=== PATIENT | female | born 1980 | race Caucasian/White ===

== ENCOUNTER 2019-11-17 16:57 | Outpatient (CLI) | payer BC, SELFPAY ==
--- NOTE | ~2019-11-17 | XR_ITS ---
EXAMINATION:XR_[id number]_CR DATE: 11/17/2019 17:13 INDICATION: Neck pain TECHNIQUE: AP, lateral, and odontoid views of the cervical spine are provided. COMPARISON: None FINDINGS: There is reversal of normal cervical lordosis. The odontoid is intact. No fracture is ident ified. Vertebral body heights and disk spaces are normal. Prevertebral soft tissues are normal. IMPRESSION: 1. Reversal of the normal cervical lordosis without acute abnormality of the cervical spine. Reviewed, dictated and finalized at location F. IMPRESSION: 1. Reversal of the normal cervical lordosis without acute abnormality of the ce rvical spine.
== END 2019-11-17 16:58 | disposition home or self-care (01) ==
LOC: CHSIMG 16:59
PROVIDERS: PCP Internal Medicine; Visit Provider Internal Medicine
DX: M54.2 Cervicalgia (principal)
CPT/HCPCS: 72040

== ENCOUNTER 2019-11-19 15:43 | Outpatient (RCR) | payer BC, SELFPAY ==
--- NOTE | 2019-11-19 16:53 | PTOPEVAL ---
Thank you for referring Noemi Winters to [facility]. Please review, sign, date and return this plan of care XAVI. I agree with and certify that the following plan of care is medically necessary. Referring Physician Date Admitting Provider: Attending Provider: Kimberly Rodriguez MD Referring Provider: *PT Outpatient Evaluation Start: 11/19/19 16:05 Freq: Status: Active Protocol: Document 11/19/19 16:05 JTF (Rec: 11/19/19 16:37 [facility] [id number]) Therapy Assessment Status Assessment Status Assessment Status Evaluation Evaluation Information Problem Diagnosis chronic neck pain Onset 11/17/19 Additional Evaluation Detail ndi = 26% Subjective Information patient reports she has been Query Text:As Reported By Patient/ having pain in the neck for Family about 2-3 years on her L side. she reports she does not have pain into the arm. she reports the pain is on the L side of the neck to the ear region. she reports she has tried chiropractic work without help. she reports she recently had x-rays of the spine. she reports she has increased pain with sitting at a desk throughout her work day. she reports she works in [employer] access [employer]. she reports she also has increased pain with driving (hour back and forth to work). patient reports she does have headaches, but reports she has had them prior to her neck pain beginning. Diagnostic Tests X-Rays For This Problem Yes: reversal or normal cervical lordosis Prior Level of Function Comments Additional Prior Level of Function she reports she has not been Comments stopped from completing any activities or being involved in any leisure time. however, she reports increased pain with activities and annoyance of pain in the neck. she reports she has been using icyhot to the spine. Pain Assessment Timing of Pain Assessment Timing of Pain Assessment Assessment Pain Scale Pain Scale Used Numeric (1 - 10) Self Report Pain Assessm
== END 2019-12-22 17:38 | disposition home or self-care (01) ==
LOC: CHSPT 15:43
PROVIDERS: PCP Internal Medicine; Visit Provider Internal Medicine
DX: M54.2 Cervicalgia (principal)
CPT/HCPCS: 97014; 97110; 97140; 97161; G0283

== ENCOUNTER 2020-02-06 01:11 | Outpatient (CLI) | payer BC, SELFPAY ==
[2020-02-06 18:13] LABS: SARS-CoV-2 RNA PCR Negative
== END 2020-02-06 01:12 | disposition home or self-care (01) ==
LOC: ANHCOVIDDT 01:12
PROVIDERS: PCP Internal Medicine; Visit Provider Surgery
DX: Z01.812 Encounter for preprocedural laboratory examination (principal); Z20.828 Contact with and (suspected) exposure to other viral communicable diseases
CPT/HCPCS: 87635; C9803; U0003

== ENCOUNTER 2020-02-09 00:38 | Day surgery (SDC) | payer BC, SELFPAY ==
[2020-01-29 14:28] VITALS: BMI 24.1
[2020-02-09 06:55] VITALS: BP 104/76; PULSE 98; RESP 18; TEMP 36.6; O2SAT 96
[2020-02-09] MEDS: LACTATED RINGERS 1,000 ML 150 ML IV CONT (07:24)
--- NOTE | 2020-02-09 08:25 | WPDANESEPPF ---
Anes - Initial Pre Proc Eval Procedure: Operation Date: 02/09/20 08:30 Proposed Procedures p Screening Colonoscopy - Pedro Goodwin DO Date/Time: 02/09/20 08:25 Surgeon: Pedro Goodwin DO Pre Op Diagnosis: Family Hx Colon Ca Patient Data Age: 39 Gender: F Height: 1.7 m Weight: 67.1 kg Last Vital Signs Temp 36.6 C 02/09/20 06:55 Pulse 98 02/09/20 06:55 Resp 18 02/09/20 06:55 BP 104/76 02/09/20 06:55 Pulse Ox 96 02/09/20 06:55 Allergies Allergy/AdvReac Type Severity Reaction Status Date / Time No Known Allergies Allergy Verified 02/09/20 07:25 Home Medications Medication Instructions Recorded Confirmed Type acyclovir 400 mg PO DAILY 01/29/20 01/29/20 History xxrqymhctfgx-Kz-kizq-minerals 1 tablet PO DAILY 01/29/20 01/29/20 History [Multiple Vitamin, Womens] etonogestrel [Nexplanon] 1 implant SUBDERMAL ONCE 02/09/20 02/09/20 History Patient hx anesthesia problems: none Family hx anesthesia problems: none PMFSH Past Medical History Medical History (Updated 02/09/20 @ 08:26 by Bill Evans MD) Palpitations Tobacco abuse Social History Social History Years smoked: 20 Smoking status: Current some day smoker Tobacco type: cigarettes Second hand tobacco smoke exposure: Yes Alcohol intake: current Drinks per week: 8 Alcohol use details: BEERS Substance use: never Substance use type: does not use Living arrangements: alone Spiritual care concerns: No Anes - Eval Final PreProcedure Day of Procedure 02/09/20 08:25 Patient weight: normal Heart: regular rate and rhythm Lungs: clear to auscultation and normal air movement Airway: Mallampati scale class II Neurological: alert and oriented Last oral intake: >/= 8 hours ASA classification: II Emergent: no Anesthetic plan: proceed Anesthesia type and monitoring: general GIVS Informed Consent: The patient's anesthetic plan and its attendant risks and benefits were discussed with the patient/family/POA. Questions were solicited and answers provided to the satisfaction of the patient/family/POA.
--- NOTE | 2020-02-09 08:30 | PM.IMHP ---
H&P: HPI History of Present Illness Date/Time: 02/09/20 08:30 Chief complaint: Family Hx Colon Ca Narrative: Noemi Winters is a 39 year old female who presents for colonoscopy. She has fam hx colon cancer. She denies hematochezia or melena. No change in bowel habits. Review of Systems Review of Systems: All systems reviewed & are unremarkable except as noted in HPI and below Constitutional: Constitutional: Denies chills, Denies fever(s), Denies headache(s) and Denies weight loss Eyes: Eyes: Denies change in vision ENT: Denies dizziness, Denies headache(s), Denies neck mass and Denies throat swelling Cardiovascular: Cardiovascular: Denies chest pain, Denies lightheadedness and Denies dyspnea Respiratory: Respiratory: Denies cough, Denies dyspnea and Denies wheezing Gastrointestinal: Gastrointestinal: Denies abdominal pain, Denies change in bowel habits, Denies nausea and Denies vomiting Genitourinary: Genitourinary: Denies hematuria and Denies dysuria Musculoskeletal: Musculoskeletal: Reports as per HPI Integumentary/Breasts: Skin/Breast: Reports as per HPI Neurologic: Denies dizziness and Denies headache(s) Allergic/Immunologic: Allergic/Immunologic: Denies throat swelling and Denies wheezing PMFSH Past Medical History Medical History Palpitations Tobacco abuse Social History Social History Years smoked: 20 Smoking status: Current some day smoker Tobacco type: cigarettes Second hand tobacco smoke exposure: Yes Alcohol intake: current Drinks per week: 8 Alcohol use details: BEERS Substance use: never Substance use type: does not use Living arrangements: alone Spiritual care concerns: No Meds Home Medications and Allergies Home Medications Medication Instructions Recorded Confirmed Type acyclovir 400 mg PO DAILY 01/29/20 01/29/20 History bsiiceygmits-Jb-pzzp-minerals 1 tablet PO DAILY 01/29/20 01/29/20 History [Multiple Vitamin, Womens] etonogestrel [Nexplanon] 1 implant SUBDERMAL ONCE 02/09/20 02/09/20 History Allergies Allergy/AdvReac Type Severity Reaction Status Date / Time No Known Allergies Allergy Verified 09/08/20 07:25 Vital Signs Vital Signs - 24 hr 02/09/20 06:55 Temperature 36.6 C Pulse Rate 98 Respiratory Rate 18 Blood Pressure 104/76 Pulse Oximetry 96 Exam Const: General: no acute distress and alert Orientation/consciousness: patient oriented x3 HENMT: Head: normocephalic and atraumatic Ears: hearing grossly normal bilaterally General nose exam: Normal nares present Mouth: Yes Normal oral and palatal mucosa present Eyes: Periorbital: periorbital findings normal Sclera: sclerae normal EOM: EOMs intact bilaterally Neck: Neck: normal visual inspection, no lymphadenopathy and trachea midline Chest: Chest palpation & inspection: normal inspection of the chest Resp: Effort & Inspection: normal respiratory effort Auscultation: clear to auscultation bilaterally Cardio: Jugular venous distension: no JVD Rate: regular rate Rhythm: regular rhythm Heart sounds: S1 normal heart sound present and S2 normal heart sound present Peripheral pulses: Peripheral pulses 2+ throughout GI: Inspection: normal to inspection GI Palp: Yes Soft to palpation, No Tenderness to palpation present (GI), No Guarding due to palpation present (GI) and No Rebound tenderness present Percussion: Yes normal to percussion Auscultation: normal bowel sounds : General: Yes no CVA tenderness Back/Spine/Pelvis: Back: no CVA tenderness Neuro: General: patient oriented x3, no focal motor deficits and CN's II-XI intact bilaterally Cognition (Neuro): normal cognition Speech: normal speech Motor exam (neuro): 5/5 motor strength present throughout Extrem: General: capillary refill normal and no clubbing, cyanosis or edema Assessment and P
[2020-02-09 08:46] VITALS: BP 83/48; PULSE 83; RESP 16; O2SAT 98
[2020-02-09 08:56] VITALS: BP 82/46; PULSE 75; RESP 16; O2SAT 99
[2020-02-09 09:06] VITALS: BP 93/56; PULSE 78; RESP 16; O2SAT 100
== END 2020-02-09 09:27 | disposition home or self-care (01) ==
PROVIDERS: PCP Internal Medicine; Visit Provider Surgery
PROC: 0DJD8ZZ Inspection of Lower Intestinal Tract, Via Natural or Artificial Opening Endoscopic (ICD-10-PCS; CPT 45378; principal; 2020-02-09 08:30)
DX: Z12.11 Encounter for screening for malignant neoplasm of colon (principal); Z80.0 Family history of malignant neoplasm of digestive organs; F17.210 Nicotine dependence, cigarettes, uncomplicated
CPT/HCPCS: 45378; J2704; J7120

== ENCOUNTER 2020-07-28 15:00 | Outpatient (CLI) | payer BC, SELFPAY ==
--- NOTE | ~2020-07-28 | MM_ITS ---
EXAMINATION: MM screening [place]no BI w mely HISTORY: Screening mammogram TECHNIQUE: Craniocaudal and mediolateral oblique 3-D tomosynthesis images were obtained and synthetic 2-D images were generated. CAD analysis was submitted and interpreted. COMPARISON: None, baseline BREAST PARENCHYMAL COMPOSITION: There are scattered areas of fibroglandular density. FINDINGS: RIGHT BREAST: An asymmetry is present in the posterior third of the upper breast on the mediolateral oblique view. LEFT BREAST: There is no evidence of suspicious mass, calcification, or architectural distortion to s uggest malignancy. IMPRESSION: 1. Right breast asymmetry on the mediolateral oblique view. 2. Additional mammographic views and possible breast ultrasound are recommended to evaluate for malig keiry and establish a baseline given that this is the first mammographic examination. BI-RADS Category 0: Incomplete: Needs additional imaging evaluation. Reviewed, dictated and finalized at location A. SALES TECHNICAL ENGINEER IMPRESSION: 1. Right breast asymmetry on the mediolateral oblique view. 2. Additional mammographic views and possible breast ultrasound are recommended to evaluate for malignancy and establish a baseline given that this is the fir st mammographic examination. BI-RADS Category 0: Incomplete: Needs additional imaging evaluation.
== END 2020-07-28 15:01 | disposition home or self-care (01) ==
LOC: CHSIMG 15:01
PROVIDERS: PCP Internal Medicine; Visit Provider Obstetrics & Gynecology
DX: Z12.31 Encounter for screening mammogram for malignant neoplasm of breast (principal)
CPT/HCPCS: 77063; 77067

== ENCOUNTER 2020-07-30 06:47 | Outpatient (CLI) | payer BC, SELFPAY ==
--- NOTE | ~2020-07-30 | MR_ITS ---
EXAMINATION: MR cervical spine wo con DATE: 07/30/2020 07:28 INDICATION: Left-sided neck pain. TECHNIQUE: Magnetic resonance imaging (MRI) of the cervical spine was performed without intravenous c ontrast. Sequences included sagittal T2-weighted FSE, sagittal T2-weighted FS FSE, sagittal T1-weight ed FSE, axial MERGE, and axial T2-weighted FSE. COMPARISON: Cervical spine radiograph 11/17/2019 FINDINGS: There is kyphosis of cervical spine. Vertebral body heights and intervertebral disc heights are normal. The spinal cord signal intensity is normal. The following disc levels are specifically d iscussed: C2-C3: The disc does not extend beyond the endplate margin. There is no uncovertebral joint osteoarth ritis. There is severe bilateral facet joint osteoarthritis. There is mild left neural foraminal sten osis. There is no central canal stenosis. C3-C4: The disc does not extend beyond the endplate margin. There is no uncovertebral joint osteoarth ritis. There is moderate right and mild left facet joint osteoarthritis. There is no neural foraminal stenosis. There is no central canal stenosis. C4-C5: There is a central protrusion. There is no uncovertebral joint osteoarthritis. There is modera te right facet joint osteoarthritis. There is no neural foraminal stenosis. There is mild central can al stenosis. C5-C6: The disc does not extend beyond the endplate margin. There is no uncovertebral joint osteoarth ritis. There is no facet joint osteoarthritis. There is no neural foraminal stenosis. There is no sara tral canal stenosis. C6-C7: The disc does not extend beyond the endplate margin. There is no uncovertebral joint osteoarth ritis. There is no facet joint osteoarthritis. There is no neural foraminal stenosis. There is no sara tral canal stenosis. C7-T1: The disc does not extend beyond the endplate margin. There is no uncovertebral joint osteoarth ritis. There is mild bilateral facet joint osteoarthritis. There is no neural foraminal stenosis. The re is no central canal stenosis. IMPRESSION: 1. Mild cervical spondylosis. Reviewed, dictated and finalized at location A. T SEWER
== END 2020-07-30 06:48 | disposition home or self-care (01) ==
LOC: CHSIMG 06:48
PROVIDERS: PCP Internal Medicine; Visit Provider Internal Medicine
DX: M54.2 Cervicalgia (principal)
CPT/HCPCS: 72141

== ENCOUNTER 2020-08-11 08:48 | Outpatient (CLI) | payer BC, SELFPAY ==
--- NOTE | ~2020-08-11 | MMUS_ITS ---
EXAMINATION: MM diagnostic moreno RT w mely, US breast RT limited HISTORY: Asymmetry reported in the posterior third of the upper right breast on July 28, 2020 scr eening mammogram TECHNIQUE: Additional 3-D tomosynthesis images of the right breast were performed and synthetic 2-D i mages were generated. CAD analysis was submitted and interpreted. High resolution upper inner and upp er outer right breast ultrasound was performed. COMPARISON: July 28, 2020 bilateral digital screening mammogram FINDINGS: MAMMOGRAPHIC FINDINGS: No reproducible mass or architectural distortion is evident. There is likely fibroglandular asymmetry . Ultrasound examination of the upper inner and upper outer right breast was performed for confirmati on. ULTRASOUND: No suspicious mass or shadowing is detected in the upper inner or upper outer right breast. IMPRESSION: 1. No mammographic evidence of malignancy 2. Routine mammographic screening BI-RADS Category 2: Benign finding(s); benign fibroglandular asymmetry. Reviewed, dictated and finalized at location A. DYER OPERATOR IMPRESSION: 1. No mammographic evidence of malignancy 2. Routine mammographic screening BI-RADS Category 2: Benign finding(s); benign fibroglandular asymmetry.
== END 2020-08-11 08:49 | disposition home or self-care (01) ==
LOC: CHSIMG 08:49
PROVIDERS: PCP Internal Medicine; Visit Provider Student in an Organized Health Care Education/Training Program
DX: R92.8 Other abnormal and inconclusive findings on diagnostic imaging of breast (principal)
CPT/HCPCS: 76642; 77061; 77065; G0279

== ENCOUNTER 2021-05-16 11:21 | Outpatient (CLI) | payer BC, SELFPAY ==
[2021-05-16 12:50] LABS: Influenza A QL RT-PCR Negative (Negative); Influenza B QL RT-PCR Negative (Negative); SARS-CoV-2 RNA PCR Negative (Negative)
== END 2021-05-16 11:22 | disposition home or self-care (01) ==
LOC: CHSLAB 11:23
PROVIDERS: PCP Internal Medicine; Visit Provider Internal Medicine
DX: J06.9 Acute upper respiratory infection, unspecified (principal)
CPT/HCPCS: 87502; C9803; U0003; U0005

== ENCOUNTER 2021-09-04 13:50 | Outpatient (CLI) | payer BC, SELFPAY ==
--- NOTE | ~2021-09-04 | MM_ITS ---
EXAMINATION: MM screening moreno BI w mely HISTORY: Screening TECHNIQUE: Craniocaudal and mediolateral oblique 3-D tomosynthesis images were obtained and synthetic 2-D images were generated. CAD analysis was submitted and interpreted. COMPARISON: 07/28/2020 BREAST PARENCHYMAL COMPOSITION: Breast composed of scattered areas of fibroglandular density FINDINGS: There is no evidence of suspicious mass, calcification, or architectural distortion to sugg est malignancy in either breast. There has been no suspicious interval change. IMPRESSION: 1. No mammographic evidence of malignancy. 2. Recommend routine screening mammography in one year. BI-RADS Category 1: Negative Reviewed, dictated and finalized at location A.
== END 2021-09-04 13:51 | disposition home or self-care (01) ==
PROVIDERS: PCP Internal Medicine; Visit Provider Obstetrics & Gynecology
DX: Z12.31 Encounter for screening mammogram for malignant neoplasm of breast (principal)
CPT/HCPCS: 77063; 77067

== ENCOUNTER 2021-12-12 16:07 | Outpatient (CLI) | payer BC, SELFPAY ==
[2021-12-12 16:21] LABS: Add Urine Microscopic? NO; Appearance Urine Clear (Clear); Bilirubin Urine Negative (Negative); Blood Urine Negative (Negative); Color Urine Light Yellow (Yellow); Glucose Urine UA Negative (Negative); Ketones Urine Negative (Negative); Leukocyte Esterase Ur Negative LEU/UL (Negative); Nitrate Urine Negative (Negative); Protein Urine Negative (Negative); Specific Grav Ur <= 1.005 (1.010-1.020); Urobilinogen Urine 0.2 mg/dL (0.2-1.0); pH Urine 5.5 (5.0-8.0)
[2021-12-12 16:29] LABS: Basophils Absolute Auto 0.03 K/mm3 (0.00-0.10); Basophils Percent Auto 0.6 % (0.0-1.0); Eosinophils Absolute Auto 0.05 K/mm3 (0.02-0.50); Hematocrit 35.7 % (35.0-49.0); Immature Granulocyte Absolute 0.01 K/mm3 (0.00-0.00); Immature Granulocyte Percent A 0.2 % (0.0-0.0); Lymphocytes Absolute Auto 1.74 K/mm3 (1.10-4.50); Lymphocytes Percent Auto 34.9 % (18.0-42.0); Mean Corpuscular HGB Conc 33.6 g/dL (32.0-36.0); Mean Corpuscular Hemoglobin 32.4 pg (27.0-31.0); Mean Corpuscular Volume 96.5 fL (78.0-102.0); Mean Platelet Volume 9.8 fl (9.2-11.8); Neutrophils Absolute Auto 2.7 K/mm3 (1.7-7.2); Neutrophils Percent Auto 53.3 % (50.0-70.0); Platelet Count Result 292 K/mm3 (150-420); Red Cell Distribution Width 12.1 % (11.6-14.4)
[2021-12-12 16:38] LABS: Rheumatoid Factor Screen Negative (Negative)
[2021-12-12 16:39] LABS: Hemoglobin A1C 5.5 % (<5.7)
[2021-12-12 16:48] LABS: Alanine Aminotransferase 25 U/L (14-59); Albumin Level 4.3 g/dL (3.4-5.0); Alkaline Phosphatase 64 U/L (46-116); Anion Gap 8 mmol/L (8-16); Aspartate Amino Transferase 13 U/L (15-37); Bilirubin,Total 0.3 mg/dL (0.00-1.00); Blood Urea Nitrogen 13 mg/dL (7-18); Calcium 9.1 mg/dL (8.5-10.1); Carbon Dioxide 27 mmol/L (21-32); Chloride 105 mmol/L (98-108); Estimated Glomerular Filt Rate > 60; Free T3 2.48 pg/mL (2.18-3.98); Glucose 101 mg/dL (70-99); Osmolality Calculated 290 mOsm/kg (285-295); Potassium 3.7 mmol/L (3.5-5.1); Sodium 140 mmol/L (136-145); Thyroid Stimulating Hormone 1.71 uIU/mL (0.36-3.74); Total Protein 7.7 g/dL (6.4-8.2)
[2021-12-12 16:53] LABS: CRP < 0.2 mg/dL (0.0-0.9)
[2021-12-12 17:23] LABS: Erythrocyte Sedimentation Rate 15 mm/hr (0-15)
[2021-12-14 21:57] LABS: Anti Cyclic Citrullinated Pept <16 Units (<20)
== END 2021-12-12 16:08 | disposition home or self-care (01) ==
LOC: CHSLAB 16:07
PROVIDERS: PCP Internal Medicine; Visit Provider Internal Medicine
DX: N39.41 Urge incontinence (principal); G43.709 Chronic migraine without aura, not intractable, without status migrainosus; E55.9 Vitamin D deficiency, unspecified; R20.3 Hyperesthesia; M54.2 Cervicalgia
CPT/HCPCS: 36415; 80053; 81003; 83036; 84439; 84443; 84481; 85025; 85652; 86038; 86140; 86200; 86430

== ENCOUNTER 2022-01-15 10:23 | Outpatient (CLI) | payer BC, SELFPAY ==
--- NOTE | ~2022-01-15 | XR_ITS ---
XR foot RT min 3V 01/15/2022 10:48 Indication: Right foot pain Procedure: 3 views right foot Comparison: 01/30/2017 Findings: There is mild osteoarthritis of the first MTP joint. Normal mineralization. Lisfranc joint intact. No fracture or traumatic malalignment. No focal soft tissue abnormality. No foreign bodies. Impression: 1: Mild osteoarthritis of the first MTP joint. Reviewed, dictated and finalized at location B. Impression: 1: Mild osteoarthritis of the first MTP joint.
== END 2022-01-15 10:24 | disposition home or self-care (01) ==
LOC: CHSIMG 10:25
PROVIDERS: PCP Internal Medicine; Visit Provider Orthopaedic Surgery
DX: M79.671 Pain in right foot (principal)
CPT/HCPCS: 73630

== ENCOUNTER 2022-07-12 11:00 | Outpatient (RCR) | payer BC, SELFPAY ==
--- NOTE | 2022-04-17 10:06 | PTOPEVAL1 ---
Assessment and note entered by Diana Anderson DPT Evaluation Information Assessment Status Evaluation Reported Pain Level Pain Score 0: Self Report Additional Pain Score Comments Pt reports urinary frequency and has had pelvic pain with exams. Urinating at least 12 times a day and 3-4 times at night. Denies urinary incontinence but reports urgency, can hold 15-20 minutes before running to the bathroom to void. Denies pain with urination. BM on average 2-3 times a week, sometimes mild pain from constipation. History of pain with pap smears for at least 10-15 years. 7/10 highest and 0/10 lowest . Pain with sexual activity in the past, frequently. Also reports back pain that started late February, relates it to after her most recent pelvic exam. Highest back pain 5-6/10 and lowest 2/10. Back pain increases with prolonged sitting. Relief with laying down. Pt reports she has never been . Previous abnormal pap smear 10+ years ago, was normal with further testing. Voices frustration with frequent urination and especially at night. Assessment PT Clinical Summary The patient is presenting to skilled therapy with a progressing history of pelvic pain and urinary frequency. She presents with decreased core and LE strength and significantly increased pelvic floor muscle tone and pain upon palpation. These impairments are contributing to her pain with pelvic exam etc. as well as her urinary frequency. She will highly benefit from therapy in order to safely decrease pain and dysfunction. Plan of Care Interventions Electrical Stimulation,Hot Pack/Cold Pack,Manual Therapy,Neuro Re-education,Patient/Caregiver Education,Therapeutic Activities,Therapeutic Exercise,Self-Care/Home Management Treatment Frequency and 1 time a week for 6 weeks Duration These treatments will address the objective and functional deficits as defined above. The patient will be advanced safely and appropriately in order for the patient to progress towards his/her prior level of function. Additional exercises will be introduced and as well as a comprehensive home exercise program upon discharge, if needed, ?to ensure carryover of functional gains achieved in the clinic. This treatment plan has been reviewed and agreement upon by the patient.
--- NOTE | 2022-05-29 09:39 | PTOPPROG ---
Assessment and note entered by Diana Anderson DPT Evaluation Information Assessment Status Progress Subjective Information Pt reports feeling good with therapy. Pt reports she sees improvements but it depends on the day, still has nights where she is voiding every 2 hours but has other nights where she can wait 4-5 hours. Reports the pain has been better on exam recently as well. Will be going for her pap next week and is curious to see how that feels. No internal assessment this visit- will reassess pain at next visit. Assessment PT Clinical Summary The patient has made some progress in therapy and reports intermittent improvements in ability to sleep without waking every 2 hours to void, and reports decreased pelvic pain during therapy sessions. Will re-assess pelvic floor at next visit. Due to progress but continued pain and frequency of urination at night, plan to continue therapy to further reduce pain and dysfunction. Plan of Care Interventions Electrical Stimulation,Hot Pack/Cold Pack,Manual Therapy,Neuro Re-education,Patient/Caregiver Education,Therapeutic Activities,Therapeutic Exercise,Self-Care/Home Management PT Services Indicated Yes Treatment Frequency and 1 visit every other week for 6 weeks Duration These treatments will address the objective and functional deficits as defined above. The patient will be advanced safely and appropriately in order for the patient to progress towards his/her prior level of function. Additional exercises will be introduced and as well as a comprehensive home exercise program upon discharge, if needed, ?to ensure carryover of functional gains achieved in the clinic. This treatment plan has been reviewed and agreement upon by the patient.
--- NOTE | 2022-07-12 11:23 | PTOPDC ---
Assessment and note entered by Diana Anderson DPT Evaluation Information Assessment Status Discharge Subjective Information Pt reports feeling about the same. Has 1-2 nights a week where she can sleep 4-5 hours. Other nights will sleep 2-3 hours before waking, not always to void but will get up to void anyway. No pain in last week, just feels a significant urge. Reported Pain Level Pain Score 0: Self Report Assessment PT Clinical Summary The patient has made some progress in therapy. She is able to tolerate further pelvic floor exam with less pain and demonstrates improved hip strength. She continues to wake frequently at night, some of the time to void but usually voids regardless. Patient would like to discharge therapy this visit and continue HEP independently. She has been educated to follow up with MD and/or PT as needed. Plan of Care PT Services Indicated No
== END 2022-07-12 15:29 | disposition home or self-care (01) ==
LOC: ANHGOSHPT 11:00
PROVIDERS: PCP Internal Medicine
DX: N39.46 Mixed incontinence (principal); N94.10 Unspecified dyspareunia; M79.18 Myalgia, other site; K59.00 Constipation, unspecified; R35.0 Frequency of micturition
CPT/HCPCS: 97110; 97112; 97140; 97162

== ENCOUNTER 2022-09-06 14:28 | Outpatient (CLI) | payer BC, SELFPAY ==
--- NOTE | ~2022-09-06 | MM_ITS ---
EXAMINATION: MM screening [facility] BI w mely HISTORY: Screening TECHNIQUE: Craniocaudal and mediolateral oblique 3-D tomosynthesis images were obtained and synthetic 2-D images were generated. CAD analysis was submitted and interpreted. COMPARISON: Comparison to multiple prior studies sequentially, with oldest reviewed study dated 07/28. BREAST PARENCHYMAL COMPOSITION: There are scattered areas of fibroglandular density. FINDINGS: There is no evidence of suspicious mass, calcification, or architectural distortion to sugg est malignancy in either breast. There has been no suspicious interval change. IMPRESSION: 1. No mammographic evidence of malignancy. 2. Recommend routine screening mammography in one year. BI-RADS Category 1: Negative Reviewed, dictated and finalized at location A.
== END 2022-09-06 14:29 | disposition home or self-care (01) ==
LOC: CHSIMG 14:29
PROVIDERS: PCP Obstetrics & Gynecology; Visit Provider Obstetrics & Gynecology
DX: Z12.31 Encounter for screening mammogram for malignant neoplasm of breast (principal)
CPT/HCPCS: 77063; 77067

== ENCOUNTER 2023-02-14 13:56 | Outpatient (CLI) | payer BC, SELFPAY ==
--- NOTE | ~2023-02-14 | XR_ITS ---
EXAMINATION: [id number] INDICATION: Right foot pain TECHNIQUE: Three views of the right foot are obtained. COMPARISON: None available FINDINGS: Bone alignment is normal. There is no fracture. There is mild osteoarthritis of multiple in terphalangeal joints. The soft tissues are unremarkable. IMPRESSION: 1. No acute osseous abnormality. Reviewed, dictated and finalized at location F.
== END 2023-02-14 13:57 | disposition home or self-care (01) ==
LOC: CHSIMG 13:59
PROVIDERS: PCP Internal Medicine; Visit Provider Student in an Organized Health Care Education/Training Program
DX: M84.374A Stress fracture, right foot, initial encounter for fracture (principal)
CPT/HCPCS: 73630

== ENCOUNTER 2023-05-31 09:12 | Outpatient (CLI) | payer BC, SELFPAY ==
[2023-05-31 09:27] LABS: Appearance Urine Clear (Clear); Basophils Absolute Auto 0.04 K/mm3 (0.00-0.10); Basophils Percent Auto 0.8 % (0.0-1.0); Bilirubin Urine Negative (Negative); Blood Urine Trace-Intact (Negative); Color Urine Yellow (Yellow); Eosinophils Absolute Auto 0.12 K/mm3 (0.02-0.50); Eosinophils Percent Auto 2.3 % (1.0-6.0); Glucose Urine UA Negative (Negative); Hematocrit 37.7 % (35.0-49.0); Hemoglobin 12.8 g/dL (12.0-15.0); Immature Granulocyte Absolute 0.02 K/mm3 (0.00-0.00); Immature Granulocyte Percent A 0.4 % (0.0-0.0); Ketones Urine Negative (Negative); Leukocyte Esterase Ur Negative LEU/UL (Negative); Lymphocytes Absolute Auto 1.75 K/mm3 (1.10-4.50); Lymphocytes Percent Auto 32.8 % (18.0-42.0); Mean Corpuscular Hemoglobin 32.4 pg (27.0-31.0); Mean Corpuscular Volume 95.4 fL (78.0-102.0); Mean Platelet Volume 9.3 fl (9.2-11.8); Monocytes Absolute Auto 0.43 K/mm3 (0.10-0.90); Monocytes Percent Auto 8.1 % (2.0-11.0); Neutrophils Percent Auto 55.6 % (50.0-70.0); Nitrate Urine Negative (Negative); Platelet Count Result 323 K/mm3 (150-420); Protein Urine Negative (Negative); Red Blood Count 3.95 M/mm3 (4.20-5.40); Red Cell Distribution Width 11.8 % (11.6-14.4); Specific Grav Ur 1.015 (1.010-1.020); Urobilinogen Urine 0.2 mg/dL (0.2-1.0); White Blood Count 5.3 K/mm3 (4.8-10.8)
[2023-05-31 09:32] LABS: Add Urine Microscopic? YES; Bacteria Urine Rare /hpf; RBC Urine 0-2 /hpf (0-2); Squamous Epithelial Cell Urine Occasional /hpf (Few); WBC Urine None seen /hpf (0-3)
[2023-05-31 09:43] LABS: Hemoglobin A1C 5.4 % (<5.7)
[2023-05-31 10:40] LABS: Alanine Aminotransferase 25 U/L (14-59); Albumin Level 4.5 g/dL (3.4-5.0); Alkaline Phosphatase 59 U/L (46-116); Anion Gap 8 mmol/L (8-16); Aspartate Amino Transferase 13 U/L (15-37); Bilirubin,Total 0.5 mg/dL (0.00-1.00); Blood Urea Nitrogen 15 mg/dL (7-18); Carbon Dioxide 31 mmol/L (21-32); Chloride 100 mmol/L (98-108); Cholesterol 203 mg/dL (0-200); Estimated Glomerular Filt Rate > 60; Free T3 3.17 pg/mL (2.18-3.98); Free T4 Free Thyroxine 0.85 ng/dL (0.76-1.46); Glucose 120 mg/dL (70-99); HDL Direct 49 mg/dL (40-60); LDL Cholesterol Calculated 137 mg/dL (<130); Osmolality Calculated 289 mOsm/kg (285-295); Potassium 3.9 mmol/L (3.5-5.1); Sodium 139 mmol/L (136-145); Thyroid Stimulating Hormone 1.97 uIU/mL (0.36-3.74); Total Protein 7.6 g/dL (6.4-8.2); Triglycerides 84 mg/dL (0-150)
[2023-06-03 06:41] LABS: Vitamin D 25 Hydroxy 37 ng/mL (30-100)
== END 2023-05-31 09:13 | disposition home or self-care (01) ==
LOC: CHSLAB 09:14
PROVIDERS: PCP Internal Medicine; Visit Provider Internal Medicine
DX: N39.0 Urinary tract infection, site not specified (principal); E55.9 Vitamin D deficiency, unspecified; R53.82 Chronic fatigue, unspecified; R73.01 Impaired fasting glucose
CPT/HCPCS: 36415; 80053; 80061; 81001; 82306; 83036; 84439; 84443; 84481; 85025

== ENCOUNTER 2023-06-12 16:44 | Outpatient (CLI) | payer OTHER, SELFPAY ==
[2023-06-12 17:57] LABS: Vitamin B12 891 pg/mL (193-986)
[2023-06-12 18:00] LABS: CRP < 0.5 mg/dL (0.0-0.9); Erythrocyte Sedimentation Rate 30 mm/hr (0-15)
[2023-06-13 13:27] LABS: Uric Acid 3.7 mg/dL (2.6-6.0)
[2023-06-14 20:45] LABS: Anti Cyclic Citrullinated Pept <16 Units (<20)
== END 2023-06-12 16:45 | disposition home or self-care (01) ==
LOC: CHSLAB 16:46
PROVIDERS: PCP Internal Medicine; Visit Provider Internal Medicine
DX: R20.3 Hyperesthesia (principal); R00.2 Palpitations; R53.82 Chronic fatigue, unspecified; M79.671 Pain in right foot
CPT/HCPCS: 36415; 82607; 84550; 85652; 86140; 86200

== ENCOUNTER 2023-06-20 15:21 | Outpatient (CLI) | payer OTHER, SELFPAY ==
--- NOTE | 2023-07-22 09:45 | WPDHOLTEREM ---
Holter/Event Monitor Holter/Event Monitor Date of procedure: 06/20/23 Holter/Event Procedure: Event Monitor Indications: Palpitations Conclusion: 1. 30 days event monitor between 06/20/23-07/19/23. This is event-triggered monitor only. There are 33 available transmissions for analysis. 2. Predominant rhythm is sinus rhythm. HR range 73-160 bpm. HR at 160 bpm was on 07/01/23 at 10:02. 3. There are 4 episodes of premature supraventricular complexes. There is 1 episode of supraventricular tachycardia/atrial tachycardia at 138 bpm lasting 10 beats on 06/22/23 at 21:56. 4. There are 3 episodes of premature ventricular complexes. No ventricular tachycardia. 5. No significant pauses greater than 2 seconds. 6. Patient reports 32 episodes of symptoms of heart racing, skipped beats, shortness of breath, dizziness, lightheadedness, heart racing, chest pain which demonstrate 1 episode of SVT described above and sinus rhythm, HR range 73-113 bpm with 4 PAC's and 3 PVC's.
== END 2023-06-20 15:22 | disposition home or self-care (01) ==
LOC: CHSCARD 15:23
PROVIDERS: PCP Internal Medicine; Visit Provider Internal Medicine
DX: R00.2 Palpitations (principal)
CPT/HCPCS: 93270

== ENCOUNTER 2023-08-07 07:05 | Outpatient (CLI) | payer OTHER, SELFPAY ==
[2023-08-07 07:23] LABS: Basophils Absolute Auto 0.05 K/mm3 (0.00-0.10); Basophils Percent Auto 1.1 % (0.0-1.0); Eosinophils Absolute Auto 0.12 K/mm3 (0.02-0.50); Eosinophils Percent Auto 2.6 % (1.0-6.0); Hematocrit 38.4 % (35.0-49.0); Lymphocytes Absolute Auto 1.88 K/mm3 (1.10-4.50); Lymphocytes Percent Auto 41.5 % (18.0-42.0); Mean Corpuscular HGB Conc 33.9 g/dL (32.0-36.0); Mean Corpuscular Hemoglobin 31.5 pg (27.0-31.0); Mean Platelet Volume 9.6 fl (9.2-11.8); Monocytes Absolute Auto 0.51 K/mm3 (0.10-0.90); Monocytes Percent Auto 11.3 % (2.0-11.0); Neutrophils Percent Auto 43.5 % (50.0-70.0); Platelet Count Result 295 K/mm3 (150-420); Red Blood Count 4.13 M/mm3 (4.20-5.40); Red Cell Distribution Width 11.8 % (11.6-14.4); White Blood Count 4.5 K/mm3 (4.8-10.8)
[2023-08-07 07:56] LABS: Rheumatoid Factor Screen Negative (Negative)
[2023-08-07 07:59] LABS: CRP < 0.5 mg/dL (0.0-0.9)
[2023-08-07 08:23] LABS: Erythrocyte Sedimentation Rate 17 mm/hr (0-15)
== END 2023-08-07 07:06 | disposition home or self-care (01) ==
LOC: CHSLAB 07:09
PROVIDERS: PCP Internal Medicine
DX: M79.671 Pain in right foot (principal); G89.29 Other chronic pain
CPT/HCPCS: 36415; 85025; 85652; 86038; 86140; 86430

== ENCOUNTER 2023-09-09 14:04 | Outpatient (CLI) | payer OTHER, SELFPAY ==
--- NOTE | ~2023-09-09 | MM_ITS ---
EXAMINATION: MM screening [place] BI w mely HISTORY: Screening mammogram TECHNIQUE: Craniocaudal and mediolateral oblique 3-D tomosynthesis images were obtained and synthetic 2-D images were generated. CAD analysis was submitted and interpreted. COMPARISON: September 06, 2022, September 04, 2021 bilateral screening mammogram examinations BREAST PARENCHYMAL COMPOSITION: There are scattered areas of fibroglandular density. FINDINGS: There is no evidence of suspicious mass, calcification, or architectural distortion to sugg est malignancy in either breast. There has been no suspicious interval change. IMPRESSION: 1. No mammographic evidence of malignancy. 2. Recommend routine screening mammography in one year. BI-RADS Category 1: Negative Reviewed, dictated and finalized at location B.
== END 2023-09-09 14:05 | disposition home or self-care (01) ==
LOC: CHSIMG 14:04
PROVIDERS: PCP Internal Medicine; Visit Provider Obstetrics & Gynecology
DX: Z12.31 Encounter for screening mammogram for malignant neoplasm of breast (principal)
CPT/HCPCS: 77063; 77067

== ENCOUNTER 2023-11-05 14:37 | Outpatient (CLI) | payer OTHER, SELFPAY ==
--- NOTE | ~2023-11-05 | XR_ITS ---
XR hand LT min 3V 11/05/2023 15:08 Indication: Left hand pain Procedure: 3 views left hand Comparison: No prior studies for comparison. Findings: No fracture, subluxation or dislocation. There is flexion deformity of the fifth distal int erphalangeal joint. No underlying fracture or traumatic malalignment. No foreign bodies. No focal sof t tissue abnormality. Impression: 1: Successful injection of the fifth distal interphalangeal joint suspicious for ligamentous injury. Reviewed, dictated and finalized at location B. Impression: 1: Successful injection of the fifth distal interphalangeal joint suspicious fo r ligamentous injury.
--- NOTE | ~2023-11-05 | XR_ITS ---
XR hand RT min 3V 11/05/2023 15:08 Indication: Right hand pain Procedure: 4 views right hand Comparison: No prior studies for comparison. Findings: There is anatomic alignment. No fracture or traumatic malalignment. No focal soft tissue ab normality. No foreign bodies. No erosions. Impression: 1: No significant bone or joint abnormality. Reviewed, dictated and finalized at location B. Impression: 1: No significant bone or joint abnormality.
== END 2023-11-05 14:38 | disposition home or self-care (01) ==
LOC: ANHIMG 14:38
PROVIDERS: PCP Internal Medicine; Visit Provider Plastic Surgery
DX: M18.9 Osteoarthritis of first carpometacarpal joint, unspecified (principal)
CPT/HCPCS: 73130

== ENCOUNTER 2023-12-12 08:58 | Outpatient (CLI) | payer OTHER, SELFPAY ==
[2023-12-12 09:21] LABS: Hemoglobin A1C 5.3 % (<5.7)
[2023-12-12 09:45] LABS: Anion Gap 10 mmol/L (4-12); Blood Urea Nitrogen 17 mg/dL (7-18); Calcium 9.4 mg/dL (8.5-10.1); Carbon Dioxide 27 mmol/L (21-32); Chloride 102 mmol/L (98-108); Estimated Glomerular Filt Rate > 60; Glucose 116 mg/dL (70-99); Osmolality Calculated 290 mOsm/kg (285-295); Potassium 4.4 mmol/L (3.5-5.1); Sodium 139 mmol/L (136-145)
== END 2023-12-12 08:59 | disposition home or self-care (01) ==
LOC: CHSLAB 08:59
PROVIDERS: PCP Internal Medicine; Visit Provider Internal Medicine
DX: R73.01 Impaired fasting glucose (principal)
CPT/HCPCS: 36415; 80048; 83036

== ENCOUNTER 2024-07-01 07:03 | Outpatient (CLI) | payer OTHER, SELFPAY ==
--- OUTSIDE RECORDS SUMMARY | 2024-07-01 07:09 | XMS_ITS | Data Portability ---
Author Organization [facility], [address] [facility] ([place]) Address [address] [place] [address] [address] [place] [address] Care Team Providers Care Dehydrogenation Operator Name Role Phone VANESA CARDONA Primary Care Provider [phone] Assessment Encounter Date Assessment Date Assessment LastModified by Organization Details LastModified Time 10/31/2023 10/31/2023 IMPRESSION: 1. Polyarthralgias . 2. Posterior tibialis syndrome bilaterally. 3. Acquired pes planus foot deformity. nv PLAN: 1. Encouraged patient to continue her current meloxicam dosing per PCP. 2. May supplement with Tylenol 1 g p.o. t.i.d. 3. Provided the patient will posterior tibialis stretching exercises, 10 repetitions twice daily. 4. Encouraged patient to fill the prescription for custom arch supports from her optics test technician at [facility] and to utilize these arch supports and avoid going barefoot. 5. Follow up as needed here in rheumatology clinic. nv [email or web address] Not available 10/31/2023 19:28:17 Plan of Treatment Reminders Order Date Submit Date Provider Last Modified By Organization Details Last Modified Time Details Appointments None record ed. Lab None record ed. Referral None record ed. Procedures None record ed. Surgeries None record ed. Imaging None record ed. Medication Orders None record ed. Patient TargetsNo targets recorded. Patient Instructions Encounter Date Encounter Id Patient Instructions Last Modified By Organization Details Last Modified Time 10/31/2023 [id number] posterior tibial tendinitis: exercises [email or web address] Not available 10/31/2023 15:01:27 Reason for Referral None Reported. Problems Name Problem SNOMED Code Status Onset Date Resolution Date Notes Provider Name and Address Organization Details Recorded Time Tibialis posterior tendinitis 902980126 Active 2023 Joel Hughes MD [address] [place] [address], [phone], [facility] 4 15:00:07 Neck pain 22752177 Active 2023 Joel Hughes MD [address] [place] [address], [phone], [facility] 4 15:00:32 Acquired bilateral pes planus 7371801009321 9109 Active 2023 Joel Hughes MD [address] [place] [address], [phone], [facility] 4 15:00:47 Problem Notes None recorded. Procedures Surgical History Date Name Laterality Status Provider Name and Address Organization Details Recorded Time Colonoscopy with biopsy completed Not Available Health Note 10/29/2023 15:59:49 Imaging Results None recorded. Procedure Notes None recorded. Medical Equipment None Reported. Allergies No known drug allergies Medications Name Sig Start Date Stop Date Status Note LastModified by Organization Details LastModified Time trazodone 50 mg tablet 10/30 completed Not Available Not Available Not Available metoprolol succinate ER 50 mg tablet,exten ded release 24 hr TAKE 1 TABLET DAILY active Not Available Not Available No t Available tolterodine ER 4 mg capsule,exte nded release 24 hr 10/30 completed Not Available Not Available Not Available meloxicam 15 mg tablet TAKE 1 TABLET DAILY NEEDED active Not Available Not Available No t Available acyclovir 400 mg tablet active Not Available Not Available Not Available triamcinolon e acetonide 0.1 % topical cream active Not Available Not Available Not Available amitriptylin e 25 mg tablet TAKE 1 TABLET AT BEDTIME NEEDED active Not Available Not Available No t Available Myrbetriq 25 mg tablet,exten ded release TAKE 1 TABLET DAILY active Not Available Not Available No t Available Vitals Date Recorded Body height Provider Name an d Address Organization Details Last Updated DateTime 10/31/2023 170.18 cm Ayla Katz [facility] 10/31/2023 14:28:21 Date Recorded Body mass index (BMI) Body weight Provider Name and Address Organization Details Last Updated DateTime 10/31/2023 24.6 kg/m2 00584 g Ayla Katz [facility] 10/31/2023 14:28:28 Date Recorded Heart rate Provider Name an d Address Organization Details Last Updated DateTime 10/31/2023 84 /min Ayla Katz [facility] 10/31/2023 14:28:36 Date Recorded Oxygen saturation Oxygen saturation in Arterial blood by Pulse oximetry Provider Name and Address Organization Details Last Updated DateTime 10/31/2023 96 % 96 % Ayla Katz [facility] 10/31/2023 14:28:37 Date Recorded Pain severity - 0-10 verbal numeric rating [Score] - Reported Provider Name and Address Organization Details Last Updated DateTime 10/31/2023 3 Ayla Katz [facility] 10/31/2023 14:28:38 Date Recorded Systolic blood pressure Diastolic blood pressure Provider Name and Address Organization Details Last Updated DateTime 10/31/2023 118 mm[Hg] 84 mm[Hg] Ayla Katz [facility] 10/31/2023 14:28:33 Social History Question Answer Notes LastModified by Organizat ion Details LastModified Time Do You Have An Advance Directive? No [email or web address] Information not available 10/29/2023 What Is Your Level Of Alcohol Consumption? Moderate [email or web address] Information not available 10/29/2023 How Many Times Per Week Do You Consume Alcohol? 1-2 Times Per Week [email or web address] Information not available 10/29/2023 What Is Your Level Of Caffeine Consumption? Moderate [email or web address] Information not available 10/29/2023 Are You Currently Employed? Yes [email or web address] Information not available 10/29/2023 Which Illicit Or Recreational Drugs Have You Used? 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 5-7 Times Per Week [email or web address] Information not available 10/29/2023 How Many Packs Per Day (PPD)? 1/4 Pack Per Day [email or web address] Information not available 10/29/2023 How Long Have You Smoked? 28 Years [email or web address] Information not available 10/29/2023 Do You Have A Medical Power Of Yacht Captain? No [email or web address] Information not available 10/29/2023 What Was The Date Of Your Most Recent Tobacco Screening? 10/31/2023 [email or web address] Information not available 10/29/2023 What Is Your Relationship Status? Single [email or web address] Information not available 10/29/2023 Do You Use Any Illicit Or Recreational Drugs? Yes [email or web address] Information not available 10/29/2023 Sex: Unknown Functional Status Question Answer Note LastModified by Organizat ion Details LastModified Time What is your exercise level? Occasional [email or web address] Information not available 10/29/2023 Mental Status None recorded. Family History Relationship Description Onset Age of this Age Resolved Age Notes LastModified by Organization Details LastModified Time Father Arthritis [email or web address] Not available 10/29/2023 15:59:48 Father Family history of malignant neoplasm [email or web address] Not available 2023 15:59:48 Father Hypercholest erolemia [email or web address] Not available 2023 15:59:48 Brother Hypercholest erolemia [email or web address] Not available 2023 15:59:48 Mother Disorder of thyroid gland [email or web address] Not available 2023 15:59:48 Medical History Condition Response Diabetes N Anxiety Disorder N Bleeding Disorder N Attention-deficit Hyperactivity Disorder N High Blood Pressure N Arthritis Y Hyperlipidemia N Cancer N Stroke N Thyroid Problems N Asthma N Depression N COPD N Anemia N Seizures N Heart Disease N Fibromyalgia N Osteoporosis N Kidney Disease N Gynecological HistoryNo gynecological history recorded. Obstetrics History GPAL:G 0 P 0 0 0 0 Immunizations Vaccine Type Date Status Note Provider Nam e and Address Organization Details Recorded Time [facility] 14:28:48 MMR 1 completed Ayla Katz [facility] 10/31/2023 14:28:48 COVID-19, mRNA, LNP-S, PF, 100 mcg/0.5mL dose or 50 mcg/0.25mL dose 2 [facility] 14:28:48 COVID-19, mRNA, LNP-S, PF, 100 mcg/0.5mL dose or 50 mcg/0.25mL dose 1 completed Ayla Young null, [facility] 10/31/2023 14:28:48 COVID-19, mRNA, LNP-S, PF, 100 mcg/0.5mL dose or 50 mcg/0.25mL dose 1 completed Ayla Young null, [facility] 10/31/2023 14:28:48 Tdap 8 completed Ayla Young null, [facility] 10/31/2023 14:28:48 Tdap 8 completed Ayla Young null, [facility] 10/31/2023 14:28:48 DTP 9 completed Ayla Young null, [facility] 10/31/2023 14:28:48 DTP 9 completed Ayla Young null, [facility] 10/31/2023 14:28:48 DTP 9 completed Ayla Young null, [facility] 10/31/2023 14:28:48 DTP 9 completed Ayla Young null, [facility] 10/31/2023 14:28:48 DTP 4 completed Ayla Young null, [facility] 10/31/2023 14:28:48 DTP 0 completed Ayla Young null, [facility] 10/31/2023 14:28:48 DTP 0 completed Ayla Young null, [facility] 10/31/2023 14:28:48 OPV 9 completed Ayla Young null, [facility] 10/31/2023 14:28:48 OPV 9 completed Ayla Young null, [facility] 10/31/2023 14:28:48 OPV 4 completed Ayla Katz [facility] 10/31/2023 14:28:48 OPV 0 completed Ayla Katz [facility] 10/31/2023 14:28:48 OPV 9 completed Ayla Katz [facility] 10/31/2023 14:28:48 Td (adult), 2 Lf tetanus toxoid, preservative free, adsorbed 3 completed Ayla Katz [facility] 10/31/2023 14:28:48 Influenza, split virus, quadrivalent, 1 completed Ayla Katz [facility] 10/31/2023 14:28:48 Influenza, split virus, quadrivalent, PF 3 completed Ayla Katz [facility] 10/31/2023 14:28:48 Past Encounters Encounter ID Performer Location Encounter Start Date Encounter Closed Date Diagnosis/Indication Diagnosis SNOMED-CT Code Diagnosis ICD10 Code Diagnosis Note [id number] Joel Hughes MD [address] [place] [address] [facility] [address] [place] [phone] 10/31/2023 13:46:57 10/31/2023 18:18:07 Tibialis posterior tendinitis 898429235 M76.829 Acquired b ilateral pes planus 6922878807 8799840 M21.41 M21.42 Neck pain 68932409 M54.2 [facility] current use of non-steroidal anti-inflammatory drug 5392835673 74924 Z79.1 Health Concerns Section Related Observation LastModified by Organization Detai ls LastModified Time None Recorded Concern Status LastModified by Organization Details LastModified Time None Recorded Advance Directives Directive N: Payers Encounter Date Sequence Insurance Name Policy Number Policy Montano Covered Member ID Montano Member ID Guarantor Name 10/31/2023 1 [facility] [id number] Noemi Winters [id number] Noemi Winters Notes Date Note Type Note Provider Name and Address Organization Details Recorded Time 4 text/html The patient is a 43-year-old white female, smoker, with a history of migrainous headaches, chronic fatigue and peripheral paresthesias with bilateral carpal tunnel syndrome, who is seen today in consultation at the request of Dr. Cardona regarding rash and polyarthralgias, rule out autoimmune disease. The patient describes onset last summer of some swelling in her right foot accompanied by pain and difficulties ambulating. The patient states that she initially did see her primary care provider and tried [id number] ibuprofen and naproxen with some minimal relief. She subsequently was referred to an orthopedist at [facility] and underwent x-rays that were negative. She had an MRI of the foot that did not reveal any significant abnormal findings according to the patient. She states she was prescribed arch supports and has not yet filled these. She does admit that her feet are flat. She does encounter pain not only in the feet, but also the medial tibial blade area with prolonged standing and ambulation. She denies any true synovitis symptoms. No Raynaud? s symptoms. She does experience some widespread pain throughout her neck and shoulders. This has been ongoing for years. She has done physical therapy for her neck in the past, but now sees a chiropractor with some relief with adjustments. Her neck pain is mainly focused in the left cervical strap muscles. She denies any prior surgery. She had an epidural steroid injection years ago with a paint process engineer, but states it really did not provide much in the way of relief. The patient denies any upper extremity radicular symptoms. Her morning stiffness typically improves within 15-20 minutes. She does describe some migratory myalgias throughout the neck and shoulders, upper and lower back. She has been experiencing some paresthesias in her hands lately and did undergo an EMG nerve conduction test on both her upper and lower extremities on September 10, 2023, in [place] at the neurology clinic and was found to have carpal tunnel syndrome, but otherwise the exams were unremarkable. She has been taking meloxicam prescribed by her PCP and reports it does help take the edge off her pain. She admits that her sleep is nonrestorative. She is up frequently to urinate. She has seen a urologist in the past and the entire workup was normal or negative according to the patient. She was put in physical therapy for the pelvis and reports the exercises have helped to some degree. She still sleeps at the most 4 hours per night. She is constantly fatigued. She denies sleep apnea symptoms. On further review of systems, she does report over the past 3 years she has had a waxing and waning dry papular rash that she can feel, but cannot see very well involving the patches in the torso, but also at the ulnar aspect of the forearms. The rash comes and goes. It has been responding lately to triamcinolone cream provided by her primary care provider. She has not yet seen a oracle fusion middleware developer. On further review, she has had no fever or chills, no unexplained weight loss. No aphthous ulcers. She has had migrainous headaches for years. She denies any cough or pleurisy. She does, unfortunately, smoke a half pack per week of cigarettes. No chest pain though she has had palpitations and dizzy spells in the past. She has undergone an extensive workup and is currently on medical therapy with metoprolol. The patient reports the medication has helped tremendously. She does have chronic GERD and avoids triggering foods, such as spicy foods. No history of peptic ulcer disease, melena or hematochezia, dysphagia, diplopia. No gross hematuria or renal calculi. She denies any history of DVT or PE, cytopenia or seizures. Today I did review her outside labs provided by Dr. Cardona from May 2023, demonstrating a normal CBC and urinalysis. Her August 13, 2023, labs demonstrate a normal HAZEL screen, Westergren sed rate, CRP, uric acid level, CMP, rheumatoid factor and CCP screens, as well as CBC, hemoglobin A1c and thyroid function panel. Her vitamin D level is reasonably normal at 37 ng/mL. Family history is noncontributory. I have reviewed the patient? s past medical history and [employer] intake form.miguel a Noemi Gibbons a 43 year oldfemalepresenting for care. Visit Reason:Ankle or Foot Ankle/Foot/Toe Concerns: -Location: -left big toe, second toe, third toe -right big toe, second toe, third toe, fourth toe, fifth toe -plantar surface of left foot -arch of right foot, plantar surface of right foot -Duration: approximately 2 year(s) -Pain onset/timing: gradual onset, occurs at night, does not interrupt sleep -Severity of pain: current severity 4/10 -Quality of pain: aching, dull, squeezing, throbbing, tightness -Exacerbating factors: activity -Patient complains of: ecchymosis, difficulty ambulating, warmth, instability, limited ROM, erythema, swelling of surrounding area, tightness of shoes -Denies: catching/locking, deformity, drainage, fevers, numbness, popping/clicking, wound/laceration of the affected area -Supportive treatments tried: compression stockings, toe spacer/taping, OTC ankle brace, splint/cast, OTC walking boot -Prior ankle/foot surgery: patient denies -Pain impacting ADLs: yes Treatments: -Seen by outside providers: yes, per patient Dr Cardona, Dr swanson, Dr Jcarlos leos, Dr Cash @ [facility] -Prior imaging/studies:MRI, X-ray-Prior imaging/studies location: MRI Jul 2023, xray Jan 2023 -Previous treatments: injections, medications -Prior injections: improved pain a little, last injection approximately 2 year(s) ago -Prior medications: did not improve symptoms, including Tylenol -Clinical trials participant: patient denies -Denies prior: acupuncture, chiropractic treatments, occupational therapy, physical therapy, surgery -Prior injury/difficulty with affected area: yes ROS: :Getting Up at Night to Pass Urine, Sexual Difficulties, Vaginal DrynessGeneral:Fatigue, Unplanned Weight Gain, WeaknessImmuno:Frequent SneezingENT:Bleeding Gums, Ringing in the Ears, Runny NoseOphtho:DrynessCardia c:Heart Murmurs, Irregular Heart Beat, Sudden Changes in HeartbeatRespiratory:Swo llen Legs or FeetGI:ConstipationMuscu loskeletal:Joint Pain, Joint Swelling, Muscle Tenderness, Muscle WeaknessSkin:Color Changes of Hands or Feet in Cold, Easy Bruising, RashNeuro:Dizziness, Headaches, Night Sweats, Sensitivity or Pain of Hands or FeetPsych:Difficulty Falling Asleep, Difficulty Staying AsleepEndo:NegativeHem:N egative Joel Hughes MD [address] [place] [address], [phone], [place] [facility] 11/01/2023 21:09:42 OBGyn Episode No OBEpisode recorded.
[2024-07-01 07:30] LABS: Basophils Absolute Auto 0.03 K/mm3 (0.00-0.10); Basophils Percent Auto 0.7 % (0.0-1.0); Eosinophils Absolute Auto 0.07 K/mm3 (0.02-0.50); Eosinophils Percent Auto 1.7 % (1.0-6.0); Hematocrit 35.2 % (35.0-49.0); Hemoglobin 11.7 g/dL (12.0-15.0); Immature Granulocyte Absolute 0.01 K/mm3 (0.00-0.00); Immature Granulocyte Percent A 0.2 % (0.0-0.0); Lymphocytes Absolute Auto 1.59 K/mm3 (1.10-4.50); Lymphocytes Percent Auto 39.3 % (18.0-42.0); Mean Corpuscular HGB Conc 33.2 g/dL (32-36); Mean Corpuscular Hemoglobin 31.1 pg (27.0-31.0); Mean Corpuscular Volume 93.6 fL (78.0-102.0); Mean Platelet Volume 9.8 fl (9.2-11.8); Monocytes Percent Auto 9.9 % (2.0-11.0); Neutrophils Absolute Auto 1.95 K/mm3 (1.70-7.20); Neutrophils Percent Auto 48.2 % (50.0-70.0); Platelet Count Result 281 K/mm3 (150-420); Red Blood Count 3.76 M/mm3 (4.20-5.40); Red Cell Distribution Width 12.1 % (11.6-14.4); White Blood Count 4.1 K/mm3 (4.8-10.8)
[2024-07-01 07:54] LABS: Rheumatoid Factor Screen Negative (Negative)
[2024-07-01 08:28] LABS: Erythrocyte Sedimentation Rate 18 mm/hr (0-15)
[2024-07-01 08:31] LABS: Alanine Aminotransferase 27 U/L (14-59); Albumin Level 4.3 g/dL (3.4-5.0); Alkaline Phosphatase 61 U/L (46-116); Anion Gap 7 mmol/L (4-12); Aspartate Amino Transferase 15 U/L (15-37); Bilirubin,Total 0.4 mg/dL (0.00-1.00); Blood Urea Nitrogen 13 mg/dL (7-18); Calcium 9.1 mg/dL (8.5-10.1); Carbon Dioxide 30 mmol/L (21-32); Chloride 105 mmol/L (98-108); Cholesterol 185 mg/dL (0-200); Estimated Glomerular Filt Rate > 60; Free T4 Free Thyroxine 0.85 ng/dL (0.76-1.46); Glucose 116 mg/dL (70-99); HDL Direct 47 mg/dL (40-60); Iron 46 ug/dL (50-170); LDL Cholesterol Calculated 124 mg/dL (<130); Osmolality Calculated 295 mOsm/kg (285-295); Percent Iron Saturation 17 % (12-57); Potassium 4.1 mmol/L (3.5-5.1); Sodium 142 mmol/L (136-145); Thyroid Stimulating Hormone 2.65 uIU/mL (0.36-3.74); Total Protein 7.2 g/dL (6.4-8.2); Triglycerides 70 mg/dL (0-150); Vitamin B12 928 pg/mL (193-986)
[2024-07-01 08:34] LABS: CRP < 0.5 mg/dL (0.0-0.9)
[2024-07-03 15:28] LABS: Lyme Disease Ab (IgM), Blot NEGATIVE (NEGATIVE); Lyme Disease Ab(IgG), Blot NEGATIVE (NEGATIVE)
[2024-07-04 02:49] LABS: FSH 83.1 mIU/mL; Total Triiodothyronine (T3) 110 ng/dL (76-181)
[2024-07-04 02:57] LABS: Vitamin D 25 Hydroxy 37 ng/mL (30-100)
== END 2024-07-01 07:04 | disposition home or self-care (01) ==
LOC: CHSLAB 07:06
PROVIDERS: PCP Family Medicine; Visit Provider Family Medicine
DX: Z13.220 Encounter for screening for lipoid disorders (principal); N95.1 Menopausal and female climacteric states; M19.90 Unspecified osteoarthritis, unspecified site; F32.1 Major depressive disorder, single episode, moderate; R00.0 Tachycardia, unspecified
CPT/HCPCS: 36415; 80053; 80061; 82306; 82607; 82670; 83001; 83540; 83550; 84402; 84403; 84439; 84443; 84480; 85025; 85652; 86038; 86039; 86140; 86200; 86430; 86617

== ENCOUNTER 2024-09-10 08:19 | Outpatient (CLI) | payer OTHER, SELFPAY ==
--- NOTE | ~2024-09-10 | MM_ITS ---
EXAMINATION: MM screening moreno BI w mely HISTORY: Screening TECHNIQUE: Craniocaudal and mediolateral oblique 3-D tomosynthesis images were obtained and synthetic 2-D images were generated. CAD analysis was submitted and interpreted. COMPARISON: Comparison to multiple prior studies sequentially, with oldest reviewed study dated 07/28. BREAST PARENCHYMAL COMPOSITION: Not dense: There are scattered areas of fibroglandular density. FINDINGS: There is no evidence of suspicious mass, calcification, or architectural distortion to sugg est malignancy in either breast. There has been no suspicious interval change. IMPRESSION: 1. No mammographic evidence of malignancy. 2. Recommend routine screening mammography in one year. BI-RADS Category 1: Negative Reviewed, dictated and finalized at location B.
--- OUTSIDE RECORDS SUMMARY | 2024-09-10 08:27 | XMS_ITS | Patient Health Record ---
Author Organization [facility] Address [address] [place], [place] [id number] Care Team Providers Care School Occupational Therapist Name Role Phone WANG MICHELLE Unavailable [phone] Magdalene Rodriguez Unavailable Unavailable GLADIS DO Unavailable [phone] Allergies No Known Allergies Reason For Referral No Information Medications Medication SIG (Take, Route, Fr equency, Duration) Notes Start Date End Date Status Meloxicam 15 MG Oral for 90 Days Active Acyclovir 400 MG Oral for 45 Days Active Plan Of Treatment No Information Insurance Providers Payer Name Payer Address Payer Phone Subscriber Number Group Number Insured Name Patient Relationship to Insured Coverage Start Date Coverage End Date [facility] [address] [address] [place] [address] [id number] RUSSELL LEE Self - patient is the insured
--- OUTSIDE RECORDS SUMMARY | 2024-09-10 08:27 | XMS_ITS | Referral Summary ---
Author Organization [facility] Address [address] [place] [address] Care Team Providers Care Site Operations Manager Name Role Phone Kimberly Rodriguez MD Primary Care Provider + [phone] Allergies No known active allergies Medications acyclovir (ZOVIRAX) 400 mg tablet Take 1 tablet (400 mg total) by mouth every 4 (four) hours while awake Active amitriptyline (ELAVIL) 25 mg tablet 02/06/2022 Active etonogestreL (Nexplanon) 68 mg implant Active meloxicam (MOBIC) 15 mg tablet 02/02/2022 Active Myrbetriq 25 mg tablet extended release 24 hr 08/20/2023 Activ e metoprolol XL (TOPROL-XL) 50 mg extended release tablet Take 1 tablet (50 mg total) by mouth daily 90 tablet 3 10/07/2023 Active Active Problems Problem Noted Date Diagnosed Date Palpitations 09/13/2023 Hyperesthesia 09/10/2023 Urinary frequency 02/21/2022 Assessment & Plan (02/21/2022 5:03 PM CDT): -No evidence of incomplete bladder emptying on PVR check today. -she has good pelvic support -Management options for urgency/frequency were discussed including expectant management, conservative management (pelvic floor physical therapy and behavioral modification, medical management, and surgical management (Interstim sacral neuromodulation, intravesicular botulinum toxin injection). -A urine culture is being sent today to rule out a UTI as a possible cause of her symptoms. -I reviewed the behavior modification recommendations for urgency, frequency and urge incontinence inclusive of: volume restriction to 50-60 ounces per day, avoidance of bladder irritants specifically caffeine and artificial sweeteners, scheduled voids q 2-3 hours as tolerated, bladder retraining. -Her pelvic floor dysfunction likely plays a role in her symptoms, and will be addressed with pelvic floor PT -She is not interested in medications at this time and will call us with the names of OAB meds she has tried previously. -she will keep a 3 day bladder diary -Would recommend urodynamics if no significant improvement in symptoms at follow up Pelvic floor dysfunction in female 02/21/2022 Assessment & Plan (02/21/2022 5:02 PM CDT): -On examination, we elicited Severe pain to palpation of the pelvic floor muscles. Patient was also found to have difficulty with relaxation of the pelvic floor muscles. -We discussed the role that her pelvic floor muscle dysfunction is likely playing in her urinary symptoms, pelvic floor symptoms and bowel symptoms. -Management options for levator ani/obturator pain/spasm were discussed including pelvic floor physical therapy and vaginal icing. -A prescription for PFPT was given as well as vaginal icing supplies. Constipation 02/21/2022 Assessment & Plan (02/21/2022 5:01 PM CDT): We discussed the importance of treating her constipation through use of increased dietary fiber, increased water intake, use of fiber recipe and/or supplement, daily Miralax. If symptoms do not improve, I recommend her seeing a neighborhood service center director. Dyspareunia in female 02/21/2022 Assessment & Plan (02/21/2022 5:01 PM CDT): -likely related to her pelvic floor myofascial pain Chronic tension-type headache, not intractable 0 11/04/2019 Sharp headache 11/04/2019 Resolved Problems Problem Noted Date Diagnosed Date Resolved Date Mixed incontinence 02/21/2022 2 Social History Tobacco Use Types Packs/Day Years Used Date Smoking Tobacco: Former Cigarettes Smokeless Tobacco: Never Tobacco Cessation:Counseling Given: Not Answered Comments No Sex and Gender Information Value Date Recorded Sex Assigned at Not on file Legal Sex Female 7:38 AM CDT Gender Identity Not on file Sexual Orientation Not on file Last Filed Vital Signs Vital Sign Reading Time Taken Comments Blood Pressure 110/70 09/13/2023 8:07 AM CDT Pulse 81 09/13/2023 8:07 AM CDT Temperature - - Respiratory Rate - - Oxygen Saturation 99% 09/13/2023 8:07 AM CDT Inhaled Oxygen Concentration - - Weight 73.8 kg (162 lb 9.6 oz) 09/13/2023 8:07 A M CDT Height 170.2 cm (5' 7 ) 09/13/2023 8:07 AM CDT Body Mass Index 25.47 09/13/2023 8:07 AM CDT Plan of Treatment Not on file Insurance [facility] [place] [id number] Care Teams Site Operations Manager Relationship Specialty Start Date End Date Kimberly Rodriguez MD [address] [place] [address] PCP - General 06/12/17
--- OUTSIDE RECORDS SUMMARY | 2024-09-10 08:27 | XMS_ITS | Clinical Summary ---
Author Organization [facility] Address [facility] [place] [address] Care Team Providers Care Call Center Receptionist Name Role Phone Kimberly Rodriguez MD Primary Care Provider [phone] Becky Fuentes MD Unavailable Allergies No known active allergies Medications meloxicam (MOBIC) 15 MG tablet 1 tablet (15 mg total) daily as needed. Active MYRBETRIQ 25 MG 24 hr tablet Take 1 tablet (25 mg total) by mouth daily. 08/20/2023 Active triamcinolone (KENALOG) 0.1 % cream Active amitriptyline (ELAVIL) 25 MG tablet 1 tablet (25 mg total) nightly as needed. Active acyclovir (ZOVIRAX) 400 MG tablet Active cyclobenzaprine (FLEXERIL) 5 MG tablet Take 1 tablet (5 mg total) by mouth nightly as needed for Muscle Spasms. Active traZODone (DESYREL) 50 MG tablet Take 1 tablet (50 mg total) by mouth nightly at bedtime. Active metoprolol succinate ER (TOPROL-XL) 50 MG 24 hr tablet Take 1 tablet (50 mg total) by mouth daily. 90 tablet 01/13/2024 Active Active Problems No known active problems Social History Tobacco Use Types Packs/Day Years Used Date Smoking Tobacco: Some Days Cigarettes Tobacco Cessation:Ready to Q uit: Not Asked; Counseling Given: Not Answered Alcohol Use Standard Drinks/Week Comments Yes 0 (1 standard drink = 0.6 oz pur e alcohol) 6-8 Comments Unknown Sex and Gender Information Value Date Recorded Sex Assigned at Not on file Legal Sex Female 11:15 AM CDT Gender Identity Not on file Sexual Orientation Not on file Last Filed Vital Signs Vital Sign Reading Time Taken Comments Blood Pressure 128/66 01/13/2024 2:45 PM CDT Pulse 71 01/13/2024 2:45 PM CDT Temperature - - Respiratory Rate 16 01/13/2024 2:45 PM CDT Oxygen Saturation 98% 11/08/2023 9:57 AM CDT Inhaled Oxygen Concentration - - Weight 71.7 kg (158 lb) 01/13/2024 2:45 PM CDT Height 170.2 cm (5' 7 ) 01/13/2024 2:45 PM CDT Body Mass Index 24.75 01/13/2024 2:45 PM CDT Plan of Treatment Health Maintenance Due Date Last Done Comments Cervical Cancer Screening Pap Smear (Age 30 to 64) Every 3 Years 1978 Colorectal Cancer Screening Colonoscopy (10 Years) 1978 Annual Physical 1981 Pneumococcal Vaccine: Pediatrics (0 to 5 Years) and At-Risk Patients (6 to 64 Years) (1 of 2 - PCV) 1984 Hepatitis C 1996 Hepatitis B Vaccines (1 of 3 - 19+ 3-dose series) 1997 Cervical Cancer Screening Pap with HPV Testing (Age 30 to 64) Every 5 Years 2008 Cervical Cancer Screening with HPV 2008 Mammogram Screening 2018 COVID-19 Vaccine ( season) 2024 06/13/2021, 09/23/2020, 08/26/2020 DTaP, Tdap and Td Vaccines (8 - Td or Tdap) 04/15/2028 04/15/2018, 12/24/2007, 08/31/1992, Additional history exists Meningococcal B Vaccine Aged Out No l onger eligible based on patient's age to complete this topic Meningococcal Vaccine Aged Out No clementine brittaney eligible based on patient's age to complete this topic RSV Immunizations Under 20 Months Aged Out No longer eligible based on patient's age to complete this topic Insurance [facility] Care Teams Call Center Receptionist Relationship Specialty Start Date End Date Kimberly Rodriguez MD [address] [place] [id number] PCP - General INTERNAL MEDICINE 11/08/23 Becky Fuentes MD [address] [place] [address] Consulting Physician CARDIOVASCULAR DISEASE 11/08/23
--- OUTSIDE RECORDS SUMMARY | 2024-09-10 08:27 | XMS_ITS ---
Author Organization [facility] Address [address] [place], [place] [id number] Care Team Providers Care Loss Prevention Associate Name Role Phone MICHELLE WANG Unavailable [phone] Magdalene Rodriguez Unavailable Unavailable GLADIS DO Unavailable [phone] REASON FOR VISIT orthotics Encounters Encounter Location Date Provider Diagnosis [place] [address] [place], [place] [id number] 03/05/2024 GLADIS DO Plan Of Treatment No Information Progress Notes * TRISTA HOFFMANNOB:[birth year] (44 yo F)Acc No.[id number]:03/05/2024 Patient: RUSSELL MENDIOLA Provider: Kisha DO :1980 A ge:43 Y S ex:Female Date:03/05/2024 Address:[address] [place], [place] [id number] Subjective: * Chief Complaints: * 1 . Orthotics. * Medical History: Objective: * Vitals: Assessment: Plan: * Treatment: * Billing Information: * Visit Code: * Procedure Codes: * Electronic signature of GABRIELLE DO DPM on 09/10/2024 at 08:26 AM CDT Sign off status: Pending * Provider: Kisha DO Date: 1 Generated for Printi ng/Faxing/eTransmitting on: 0 09/10/2024 08:26 AM CDT
--- OUTSIDE RECORDS SUMMARY | 2024-09-10 08:27 | XMS_ITS | Clinical Summary ---
Author Organization [facility] Address [address] [place] [address] Care Team Providers Care Nurse Practitioner Physicians Assistant Name Role Phone Kimberly Rodriguez MD Primary Care Provider [phone] Allergies No known active allergies Medications acyclovir [...] not improve, I recommend her seeing a airport driver. 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) Migraines Urinary tract infection Palpitations Family History Medical History Relation Name Comments Cancer Father Colon cancer Father Family history of malignant neoplasm of colon - (Added by TW Conv) Migraines Mother Family history of migraine headaches - (Added by TW Conv) Diabetes Paternal Grandfather Family history of diabetes mellitus - (Added by TW Conv) Relation Name Status Comments Father Alive Mother Alive Paternal Grandfather Social History Tobacco Use Types Packs/Day Years Used Date Smoking Tobacco: Former Cigarettes Smokeless Tobacco: Never Tobacco Cessation:Counseling Given: Not Answered Comments No Sex and Gender Information Value Date Recorded Sex Assigned at Not on file Legal Sex Female 7:38 AM CDT Gender Identity Not on file Sexual Orientation Not on file Obstetrics History Para Term AB IAB SAB Ectopic Multiple Livin g Live Births 0 0 0 0 0 0 0 0 0 0 0 Last Filed Vital Signs Vital Sign Reading [...] 09/13/2023 8:07 AM CDT Plan of Treatment Health Maintenance Due Date Last Done Comments Breast Cancer Screening-Mammogram 1978 Cervical Cancer Screening 1978 Colon Cancer Screening-Colonoscopy 1978 Depression Screening 1978 Hepatitis C Screening 1978 Hepatitis B Screening 1996 Regular Well Visit/Exam 18-64 1996 Influenza Vaccine (#1) 2024 DTaP/Tdap/Td Vaccine (8 - Td or Tdap) 04/15/2028 04/15/2018, 12/24/2007, 08/31/1992, Additional history exists HPV Vaccines Aged Out No longer eligi ble based on patient's age to complete this topic Pneumococcal vaccine <65 Aged Out No longer eligible based on patient's age to complete this topic Insurance [facility] Care Teams Nurse Practitioner Physicians Assistant Relationship Specialty Start Date End Date Kimberly Rodriguez MD [address] [place] [address] PCP - General 06/12/17
--- OUTSIDE RECORDS SUMMARY | 2024-09-10 08:27 | XMS_ITS ---
Author Organization [facility] Address [address] [place], [place] [id number] Care Team Providers Care Piano Case And Bench Assembler Name Role Phone MICHELLE WANG Unavailable [phone] Magdalene Rodriguez Unavailable Unavailable GLADIS DO Unavailable [phone] REASON FOR VISIT *General care Medications Medication SIG (Take, Route, Fr equency, Duration) Notes Start Date End Date Status Meloxicam 15 MG Oral for 90 Days Active Acyclovir 400 MG Oral for 45 Days Active Vital Signs Height 67.00 in 04/04/2023 Weight 150 lbs 04/04/2023 BMI 23.49 kg/m2 04/04/2023 Height-cm 170.18 cm 04/04/2023 Weight-kg 68.04 kg 04/04/2023 Encounters Encounter Location Date Provider Diagnosis [address] [id number] 04/04/2023 GLADIS DO Stress fracture, right foot, subsequent encounter for fracture with routine healing M84.374D ; Strain of intrinsic muscle and tendon at ankle and foot level, right foot, initial encounter S96.211A ; Localized edema R60.0 ; Pain in right foot M79.671 and Flat foot [pes planus] (acquired), right foot M21.41 Assessments Encounter Date Diagnosis (ICD Code) Assessment Notes Treatment Notes Treatment Clinical Notes Section Notes 04/04/2023 Stress fracture, right foot, subsequent encounter for fracture with routine healing (ICD-10 - M84.374D) 04/04/2023 Strain of intrinsic muscle and tendon at ankle and foot level, right foot, initial encounter (ICD-10 - S96.211A) 04/04/2023 Localized edema (ICD-10 - R60.0) 04/04/2023 Pain in right foot (ICD-10 - M79.671) 04/04/2023 Flat foot [pes planus] (acquired), right foot (ICD-10 - M21.41) Patient educated on etiology and treatment options for flexible flat foot deformity. Educated patient on how a flexible flat foot deformity can in turn result in pathology such as hammer toe, bunions, equinus, neuromas. Recommend use of custom foot inserts to help alleviate plantar peak pressures and accomodate for digital deformity to feet. 04/04/2023 Other Discussed the treatment course for ankle sprain. Explained that ankle injuries may take a total of 6-12 weeks for recovery based on the severity of the sprain. Stressed the importance of rest, activity modification, and bracing. Instructed patient she can begin to ween off the CAM boot and transition into ankle brace instead. A trilok ankle brace was dispensed for the pateint's right and the patient was instructed on it's use. Plan Of Treatment Treatment Notes Assessment Notes Flat foot [pes planus] (acqu ired), right foot Patient educated on etiology and treatme nt options for flexible flat foot deformity. Educated patient on how a flexible flat foot deformity can in turn result in pathology such as hammer toe, bunions, equinus, neuromas. Recommend use of custom foot inserts to help alleviate plantar peak pressures and accomodate for digital deformity to feet. Other Discussed the treatment course for ankle sprain. Explained that ankle injuries may take a total of 6-12 weeks for recovery based on the severity of the sprain. Stressed the importance of rest, activity modification, and bracing. Instructed patient she can begin to ween off the CAM boot and transition into ankle brace instead. A trilok ankle brace was dispensed for the pateint's right and the patient was instructed on it's use. Next Appt Details Follow Up: prn, Reason: Progress Notes * TRISTA HOFFMANNOB:[birth year] (42 yo F)Acc No.[id number]:04/04/2023 Patient: RUSSELL MENDIOLA Provider: Kisha DO :1980 A ge:42 Y S ex:Female Date:04/04/2023 Address:[address] [place] [address], [place] [id number] Subjective: * Chief Complaints: * 1 . *General care. * HPI: H PI: Follow Up Visit P atient presents for follow up visit for stress fracture right foot. Patient denies any constitutional symptoms at this time. Patient denies any recent trauma to the foot or ankle. Patient states she is having mild soreness across the front of her right foot but definitely not as much as it was only a few weeks ago. States she is still using her CAM boot when walking at home.. * ROS: G eneral / Constitutional: Patient denies w eakness. R espiratory: Patient denies c hronic cough, shortness of breath, sputum production. C ardiovascular: Patient denies c hest pain, history of IN, irregular heartbeat. M usculoskeletal: Patient complains of j oint stiffness, joint pain. ? P eripheral Vascular: Patient denies b lanching of skin, cold extremities, decreased sensation in extremities. S kin: Patient denies f ungal nails, itching. N eurologic: Patient denies d izziness, gait abnormality, headache. * Medical History: * Medications: T aking Meloxicam 15 MG Tablet Oral , Taking Acyclovir 400 MG Tablet Oral Objective: * Vitals: W t:150lbs, Wt-k.04 kg, Ht: 67.00 in, Ht-cm: 170.18 cm, BMI:23.49Index, Body Surface Area: 1.79. * Examination: P hysical Examination: V ascular: Dorsalis Pedis pulse noted at 2/4 right foot and 2/4 left foot and Posterior Tibial pulse noted at 2/4 right foot and 2/4 left foot, Capillary refill times noted to be less than three seconds x ten, Temperature gradient noted to be warm to cool to bilateral foot, pedal hair present to bilateral foot and no varicosities are noted Dermatologic: there are no open lesions, no signs of active clinical infection, no erythema noted, no ecchymoses, nails are at hygienic length during todays visit, interdigital spaces clean dry and intact Neurology: protective sensation intact to light touch bilateral digits one through five, vibratory sensation intact to first metatarsophalangeal joint bilaterally Musculoskeletal: pain to palpation across dorsal forefoot metatarsal heads two through four right foot, ankle joint range of motion 0 degree with knee extended bilateral side, arch height 2/5 NWB bilateral 2/5 WB, no calf pain noted b/l, too many toes signs noted on weight bearing exam. Assessment: * Assessment: 1. S tress fracture, right foot, subsequent encounter for fracture with routine healing - M84.374D (Primary) 2 . S train of intrinsic muscle and tendon at ankle and foot level, right foot, initial encounter - S96.211A 3 . L ocalized edema - R60.0 4 . P ain in right foot - M79.671 5 . F lat foot [pes planus] (acquired), right foot - M21.41 Plan: * Treatment: 2. O thers Notes: Discussed the treatment course for ankle sprain. Explained that ankle injuries may take a total of 6-12 weeks for recovery based on the severity of the sprain. Stressed the importance of rest, activity modification, and bracing. Instructed patient she can begin to ween off the CAM boot and transition into ankle brace instead. A trilok ankle brace was dispensed for the pateint's right and the patient was instructed on it's use. * Procedure Codes: L 1902 AFO ANK GAUNTLT PREFAB W/FIT&ADJ, Modifiers: RT * Follow Up: p rn * Billing Information: * Visit Code: 57576 Office Visit, Est Pt., Level 3. * Procedure Codes: L1902 AFO ANK GAUNTLT PREFAB W/FIT&ADJ. Modifiers: RT * ETING REPORTING ANALYST Sign off status: Completed true * Provider: Kisha DO Date: 06/04/2022 Generated for Tristin collier/Milton/Darin on: 0 09/10/2024 08:27 AM CDT History and Physical Notes * HPI (History of Present Illness) Category Sub-Category Detail Notes Category Not es HPI Follow Up Visit Patient presents for follow up visit for stress fracture right foot. Patient denies any constitutional symptoms at this time. Patient denies any recent trauma to the foot or ankle. Patient states she is having mild soreness across the front of her right foot but definitely not as much as it was only a few weeks ago. States she is still using her CAM boot when walking at home. Examination Category Sub-Category Detail Notes Category Not es Physical Examination Vascular: Dorsalis Pedis pulse noted at 2/4 right foot and 2/4 left foot and Posterior Tibial pulse noted at 2/4 right foot and 2/4 left foot, Capillary refill times noted to be less than three seconds x ten, Temperature gradient noted to be warm to cool to bilateral foot, pedal hair present to bilateral foot and no varicosities are noted Dermatologic: there are no open lesions, no signs of active clinical infection, no erythema noted, no ecchymoses, nails are at hygienic length during todays visit, interdigital spaces clean dry and intact Neurology: protective sensation intact to light touch bilateral digits one through five, vibratory sensation intact to first metatarsophalangeal joint bilaterally Musculoskeletal: pain to palpation across dorsal forefoot metatarsal heads two through four right foot, ankle joint range of motion 0 degree with knee extended bilateral side, arch height 2/5 NWB bilateral 2/5 WB, no calf pain noted b/l, too many toes signs noted on weight bearing exam
== END 2024-09-10 08:20 | disposition home or self-care (01) ==
LOC: CHSIMG 08:20
PROVIDERS: PCP Family Medicine; Visit Provider Obstetrics & Gynecology
DX: Z12.31 Encounter for screening mammogram for malignant neoplasm of breast (principal)
CPT/HCPCS: 77063; 77067